=== PATIENT | female | born 1965 | race Caucasian/White ===

== ENCOUNTER 2025-02-04 07:23 | Inpatient (IN) | payer BC, OTHER ==
[~2025-02-04] VITALS: Ht 165.1 cm; Wt 66.0 kg
[~2025-02-04 07:23] MED LIST: ONDA4TAB6 PO; OXYC-145 PO
--- NOTE | 2025-02-04 07:51 | Physician Documentation ---
History of Present Illness ~ Chief Complaint: Anxiety Stated Complaint: ANXIETY Time Seen by MD: 07:32 Primary Medical Doctor: [place] Source: patient, EMS HPI 59-year-old female history of hypertension, anxiety, agoraphobia presenting for shakiness. She reports she was driving on her way to work after taking a vacation and feeling very anxious about returning. She suddenly had cramping of her bilateral hands and panic attack. She is currently feeling better. She is still feeling a little shaky. denies diarrhea, reports twice daily soft stools. No vomiting. She reports no medication changes she is on lisinopril 40 mg which was increased from 20 mg about 6 months ago. She reports eating a normal well balanced diet. No substance use. No alcohol use Medication Reconciliation Allergies: Coded Allergies: acetaminophen (Verified Allergy, Unknown, 02/04/25) hydrocodone (Verified Allergy, Unknown, 02/04/25) Scheduled PRN Ondansetron Hcl (Zofran), 1 TABLET PO Q6H PRN for nausea Oxycodone HCl/Acetaminophen (Percocet 5-325 mg Tablet), 1 TABLET PO Q4H PRN for pain Past Medical History Past Medical History: No Pertinent History Past Surgical History: no surgical history Review of Systems All Other Systems at this time: Reviewed and Negative Constitutional: Denies: fever Cardiovascular: Denies: chest pain Gastrointestinal: Denies: abdominal pain Physical Exam Vital Signs: RN Vital Signs have been reviewed: Yes, Temperature: 98.2, Source: Temporal, Heart Rate: 100, Respiratory Rate: 17, BP: 164/98, Pulse Oximetry: 98, Weight: 66.000 Physical Exam Well-appearing no distress Awake alert oriented Cranial nerves 2-12 intact Normal gait Normal speech Tremulous Progress Progress Note 8:[address] Holley who agrees with management plan and graciously accept for admission Results/Orders Reviewed/noted all lab results: Yes Results/Orders Orders - MARTHA RESENDEZ MD Hospitalist (02/04/25 08:21) Fill Out Med Reconciliation (02/04/25 08:21) Magnesium Sulf-Water 2g/50ml (Magnesium (02/04/25 08:25) Completed Orders - MARTHA RESENDEZ MD Cbc/Diff (02/04/25 07:42) CMP (02/04/25 07:42) MG (02/04/25 07:52) Electrocardiogram (02/04/25 ) Potassium Cl 20meq/100ml Bag (Potassium (02/04/25 08:25) Potassium Cl 20meq/15ml Oral (Potassium (02/04/25 08:25) CK (02/04/25 07:41) Medications Received in ER Medications (Trade) Dose Ordered Sig/Lakisha Route PRN Reason Start Time Stop Time Status Last Admin Dose Admin Magnesium Sulfate 50 ml @ 25 mls/hr ONCE ONCE IV 02/04/25 08:25 02/04/25 10:24 02/04/25 08:42 25 MLS/HR Potassium Chloride 100 ml @ 100 mls/hr Q1H ONCE IV 02/04/25 08:25 02/04/25 09:24 DC 02/04/25 08:42 100 MLS/HR (POTASSIUM Cl 20mEq/15mL oral solution) 20 meq ONCE ONCE PO 02/04/25 08:25 02/04/25 08:26 DC 02/04/25 08:42 20 MEQ Vital Signs 02/04/25 02/04/25 02/04/25 02/04/25 07:30 09:02 09:03 09:55 Temp 98.2 Pulse 100 90 77 Resp 17 13 17 13 B/P (MAP) 164/98 177/95 (122) Pulse Ox 98 97 97 O2 Flow Rate 0 Laboratory Tests Test 02/04/25 07:41 02/04/25 07:49 Sodium Level 139 Potassium Level 2.7 *L Chloride Level 97 L Carbon Dioxide Level 26.3 Anion Gap 16 Blood Urea Nitrogen 9 Creatinine 0.95 H Estimated GFR/1.73 m2 60 BUN/Creatinine Ratio 9.5 L Glucose Level 138 H Calcium Level 8.7 Magnesium Level 1.0 *L Total Bilirubin 1.9 H Aspartate Amino Transf (AST/SGOT) 37 Alanine Aminotransferase (ALT/SGPT) 29 Alkaline Phosphatase 142 H Total Creatine Kinase 93 Total Protein 8.7 H Albumin 3.4 Globulin 5.3 H Albumin/Globulin Ratio 0.6 L Chemistry Comments White Blood Count 5.7 Red Blood Count 4.63 Hemoglobin 15.6 Hematocrit 44.8 Mean Corpuscular Volume 96.7 Mean Corpuscular Hemoglobin 33.7 H Mean Corpuscular Hemoglobin Concent 34.8 Red Cell Distribution Width 14.3 Platelet Count 152 Mean Platelet Volume 7.0 L Neutrophils (%) (Auto) 82.7 H Lymphocytes (%) (Auto) 11.6 L Monocytes (%) (Auto) 4.2 Eosinophils (%) (Auto) 0.5 Basophils (%) (Auto) 1.0 Neutrophils # (Auto) 4.7 Lymphocytes # (Auto) 0.7 L Monocytes # (Auto) 0.2 Eosinophils # (Auto) 0.0 Basophils # (Auto) 0.1 CBC Comment EKG/XRAY/CT/US/VASC/MRI EKG : Additional Comment EKG independently interpreted by myself time 8:26 a.m. indication hypokalemia normal sinus rhythm rate 89 normal axis normal intervals no ST or T-wave abnormalities Medical Decision Making Differential Dx:Considerations: Include: Alcohol abuse, Anxiety, Bipolar disorder, Conversion disorder, Depression Departure Disposition: 09 ADMITTED INPATIENT Admitted to Inpatient Unit: to hospitalist Impression: Primary Impression: Hypokalemia Additional Impression: Hypomagnesemia Referrals: NO PRIMARY CARE PROVIDER (PCP) Signature Scribe Signature: na Attestation: MARTHA Cross MD February 04, 2025 07:51
[2025-02-04 08:01] LABS: BASOPHILS # (AUTO) 0.1 X10'3 (0-0.2); EOSINOPHILS % (AUTO) 0.5 % (0-6); HEMATOCRIT 44.8 % (35.0-45.0); HEMOGLOBIN 15.6 g/dl (12.0-16.0); LYMPHOCYTES # (AUTO) 0.7 X10'3 (1.1-4.8); LYMPHOCYTES % (AUTO) 11.6 % (21-51); MEAN CORPUSCULAR HEMOGLOBIN 33.7 PG (27.0-31.0); MEAN CORPUSCULAR HGB CONC 34.8 g/dL (33.0-36.5); MEAN CORPUSCULAR VOLUME 96.7 FL (78-98); MONOCYTES # (AUTO) 0.2 X10'3 (0-0.9); MONOCYTES % (AUTO) 4.2 % (2-12); NEUTROPHILS # (AUTO) 4.7 X10'3 (1.8-7.7); NEUTROPHILS % (AUTO) 82.7 % (42-75); PLATELET COUNT 152 X10'3 (140-440); RED BLOOD COUNT 4.63 X10'6 (4.20-5.60); RED CELL DISTRIBUTION WIDTH 14.3 % (11.5-14.5); WHITE BLOOD COUNT 5.7 X10'3 (4.5-11.0)
[2025-02-04 08:15] LABS: ALANINE AMINOTRANSFERASE 29 U/L (12-78); ALBUMIN 3.4 G/DL (3.4-5.0); ALBUMIN/GLOBULIN RATIO 0.6 (1.1-1.5); ALKALINE PHOSPHATASE 142 IU/L (46-116); ANION GAP 16 (8-16); ASPARTATE AMINO TRANSFERASE 37 U/L (10-37); BILIRUBIN,TOTAL 1.9 MG/DL (0.1-1.0); BLOOD UREA NITROGEN 9 MG/DL (7-18); BUN/CREATININE RATIO 9.5 (10.0-20.0); CALCIUM 8.7 MG/DL (8.5-10.1); CHLORIDE 97 MMOL/L (99-107); CREATININE 0.95 MG/DL (0.40-0.90); GLUCOSE 138 MG/DL (70-104); SODIUM 139 MMOL/L (135-145); TOTAL CARBON DIOXIDE 26.3 MMOL/L (24-32); TOTAL PROTEIN 8.7 G/DL (6.4-8.2); eCRCL 57 ML/MIN; eGFR 60 ML/MIN
[2025-02-04 08:18] LABS: POTASSIUM 2.7 MMOL/L (3.5-5.1)
--- NOTE | 2025-02-04 08:28 | ELECTROCARDIOGRAPH REPORT ---
[facility] Test Date: 2025-02-04 Test Time: 08:26:33 Pat Name: KARINA CORONA Department: [facility]-ER Patient ID: [facility]-[id number] Room: [facility]TH[facility] Gender: F Home Health Care Case Manager: : 1965 Requested By: MARTHA RESENDEZ Order Number: [id number] Reading MD: Dr. Bennett Verdugo Measurements Intervals [place] Rate: 89 P: 68 AL: 141 QRS: 39 QRSD: 90 T: 27 QT: 363 QTc: 442 Interpretive Statements Sinus rhythm Electronically Signed On 02-06-2025 11:02:[address] Bennett Verdugo Please click the below link to view image of tracing.
[2025-02-04] MEDS: potassium Cl 20mEq in NS 1,000 ML IV SCH (08:35)
[2025-02-04] MEDS ORDERED: magnesium sulf-water 2g/50mL 50 ML IV PRN (08:35)
[2025-02-04] MEDS ORDERED: potassium Cl 40MEQ/1/2NS 520ml 520 ML IV PRN (08:35)
[2025-02-04] MEDS ORDERED: ondansetron/PF 4mg/2ml inj IV PRN (08:35)
[2025-02-04] MEDS ORDERED: magnesium sulf-water 4G/100mL 100 ML IV PRN (08:35)
[2025-02-04] MEDS ORDERED: magnesium hydroxide 30ml (MOM) UD suspension PO PRN (08:35)
[2025-02-04] MEDS: potassium Cl 20mEq/100mL bag 100 ML IV ONE (08:42)
[2025-02-04] MEDS: magnesium sulf-water 2g/50mL 50 ML IV ONE (08:42)
[2025-02-04] MEDS: POTASSIUM CHLORIDE 20 MEQ/15 ML oral solution PO ONE (08:42)
[2025-02-04 09:07] LABS: CREATINE KINASE 93 U/L (26-192)
[2025-02-04 11:20] LABS: CHOL/HDL RATIO 2.1 (0.00-4.99); CHOLESTEROL 305 MG/DL (0-200); HDL CHOLESTEROL 144 MG/DL (35-60); LDL CHOLESTEROL 137 MG/DL (50-100); THYROID STIMULATING HORMONE 1.61 ulU/ml (0.34-4.50); TRIGLYCERIDES 65 MG/DL (20-135)
[2025-02-04] MEDS: potassium Cl 20 mEq SR tablet PO PRN ×2 (11:42→19:18)
[2025-02-04 11:45] LABS: ALANINE AMINOTRANSFERASE 27 U/L (12-78); ALBUMIN 3.3 G/DL (3.4-5.0); ALBUMIN/GLOBULIN RATIO 0.7 (1.1-1.5); ALKALINE PHOSPHATASE 135 IU/L (46-116); ANION GAP 10 (8-16); ASPARTATE AMINO TRANSFERASE 36 U/L (10-37); BILIRUBIN,TOTAL 1.5 MG/DL (0.1-1.0); BLOOD UREA NITROGEN 9 MG/DL (7-18); BUN/CREATININE RATIO 12.5 (10.0-20.0); CALCIUM 8.5 MG/DL (8.5-10.1); CHLORIDE 102 MMOL/L (99-107); CREATININE 0.72 MG/DL (0.40-0.90); GLUCOSE 93 MG/DL (70-104); POTASSIUM 3.3 MMOL/L (3.5-5.1); SODIUM 142 MMOL/L (135-145); TOTAL CARBON DIOXIDE 30.2 MMOL/L (24-32); TOTAL PROTEIN 8.3 G/DL (6.4-8.2); eCRCL 76 ML/MIN; eGFR 83 ML/MIN
--- NOTE | 2025-02-04 12:18 | HISTORY AND PHYSICAL-Residence ---
History & Physical Providers to CC Resident Creating Document: IRIS CHEN, LORIN ~ History of Present Illness Primary Medical Doctor: Dr. 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 Endorses tremulousness of both hands around 6:50 a.m. on today. Endorses pain and soreness in both hands & freezing of both hands for the past one day. Complained of night sweats, cramping of the calf muscles and heat intolerance for the past one day. She reports dry cough occasionally. He denied costovertebral angle pain, abdominal pain, abdominal distention, chest pain, shortness of breaths, fever, wheezing, headache, burning micturition, vomitings, sleep and appetite disturbances, bladder and bowel disturbances. She reports multiple UTI in the the past and had admission in 2014 for nephrolithiasis. Discussed code status with the patient and patient wants to be in full code Allergies: Coded Allergies: acetaminophen (Verified Allergy, Unknown, 02/04/25) hydrocodone (Verified Allergy, Unknown, 02/04/25) Home Medications Home Medications Active Percocet 5-325 mg Tablet (Oxycodone HCl/Acetaminophen) 1 Each Tablet 1 Tablet PO Q4H PRN Zofran (Ondansetron Hcl) 4 Mg Tablet 1 Tablet PO Q6H PRN Past Medical History Past Medical History Hypertension Valvular problem(not sure about the diagnosis) History of renal stones UTI Past Surgical History Surgical History Comment Tonsillectomy Past Social History Social History Comment Endorses smoking half a pack of cigarettes a day for the past 40-45 years Alcohol use Denied drug use. 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 Constitutional: Denies: fever Cardiovascular: Denies: chest pain Gastrointestinal: Denies: abdominal pain Exam Vitals: Vital Signs Date Time Temp Pulse Resp B/P (MAP) Pulse Ox O2 Delivery O2 Flow Rate FiO2 02/04/25 09:55 77 13 177/95 (122) 97 0 02/04/25 07:30 98.2 General: GENERAL: Alert, awake, oriented to time place person. Not in acute distress HEENT: Atraumatic, EOMI, PERRL, normal oropharynx, moist oral mucosa. NECK: Supple, trachea midline. CARDIAC: Regular rate and rhythm, no murmurs, rubs, or gallops. Equal distal pulses. No lower extremity edema. RESPIRATORY: Equal breath sounds, clear to auscultation bilaterally, no respiratory distress. GASTROINTESTINAL: Non distended, soft, nontender. Decreased bowel sounds. Back: no flank tenderness MUSCULOSKELETAL: Normal range of motion, calves soft and nontender, no swelling. NEUROLOGICAL: Speech is clear. Awake, alert, and oriented x 3. SKIN: Warm/dry, no pallor, no rash. PSYCH: Alert and appropriate, normal affect. Diagnostic Data Last Recorded Lab Results: 02/04/25 0749 02/04/25 1122 Advance Care Planning Advanced Care planning: Add on additional 30 min Additional Plan Hypokalemia Hypomagnesemia Hypochloremia About three likely secondary to Possible Hyperaldosteronism 2/[address] imaging in 2015 showed right adrenal mass-adenoma (3.[address] in 2015) Ordered CT abdomen pelvis and aldosterone & renin levels and results are pending. Patient is on potassium and magnesium replace per protocol We will continue to monitor CMP. DAVE Likely secondary to renal tubular stasis, In the morning serum creatinine is elevated and then it is normalized . Hyperbilirubinemia Elevated alkaline phosphatase Above likely secondary to possible alcohol liver disease Ordered CT abdomen pelvis we will follow up with the results On alcohol detox protocol thiamine, folic acid. We will continue to monitor liver function test. Hypertension Blood pressures are high in 170s Patient is on hydralazine p.r.n. and lisinopril 20 mg dose When continue to monitor blood pressure with a target of less than 130 Hyperlipidemia LDL is 137 Started on atorvastatin 20 mg in view of comorbidities hypertension, chronic smoking Code status: Full code Date of Service: February 04, 2025 Billing Provider: HERLINDA CASTANON MD Common Visit Codes: [id number] INP/OBS CARE (HIGH) Secondary Visit Codes: [id number] CARE PLAN 30 MINUTES IRIS CHEN RES February 04, 2025 12:18 HERLINDA CASTANON MD February 04, 2025 19:01
[2025-02-04 14:50] VITALS: BP_SYST 171; BP_SYST 181; BP_DIAS 109; BP_DIAS 95; PULSE 72; RESP 16; TEMP 98.7; O2SAT 98
[2025-02-04] MEDS: lisinopril 20mg tablet PO SCH (15:10)
[2025-02-04] MEDS: hyDRALAzine 10mg tablet PO SCH (16:17)
[2025-02-04] MEDS: nicotine 14mg patch - 24hr TD SCH (16:17)
[2025-02-04] MEDS ORDERED: haloperidol 5mg tablet PO PRN (16:45)
[2025-02-04] MEDS ORDERED: dextrose 50%-water 50ml dispensing syringe IV PRN (16:45)
[2025-02-04] MEDS ORDERED: haloperidol lactate 5mg/ml inj IM PRN (16:45)
[2025-02-04] MEDS ORDERED: LORazepam 2 mg/ml vial IV PRN (16:45)
[2025-02-04] MEDS ORDERED: LORazepam 1 MG tablet PO PRN (16:45)
[2025-02-04] MEDS ORDERED: atorvastatin 20mg tablet PO SCH (17:00)
[2025-02-04 18:00] VITALS: BP 159/79; PULSE 99; RESP 16; TEMP 97.3; O2SAT 95
--- NOTE | 2025-02-04 18:00 | RADIOLOGY REPORT ---
EXAM: CT CT ABDOMEN PELVIS HISTORY: right adrenal mass TECHNIQUE: Volumetric multidetector CT images of the abdomen and pelvis were obtained after the admin istration of intravenous contrast. All CT scans at this facility use dose modulation, iterative recon struction, and/or weight based dosing when appropriate to reduce radiation dose to as low as reasonab ly achievable. COMPARISON: None FINDINGS: [LOWER CHEST]: Opacities of the periphery of the left lung base measuring up to 1.7 cm. No pleural e ffusion. [LIVER]: Diffuse hepatic steatosis [GALLBLADDER AND BILIARY TREE]: No cholelithiasis. [SPLEEN]: Unremarkable. [PANCREAS]: Unremarkable. [ADRENAL GLANDS]: Right adrenal gland nodule measuring 3.1 cm with low to intermediate density. [KIDNEYS]: No hydronephrosis. Multiple bilateral 1 - 2 mm nonobstructive renal calyceal stones. [BLADDER]: Unremarkable for the degree distention. [REPRODUCTIVE ORGANS]: Unremarkable. [BOWEL/MESENTERY]: Stomach is normal. No CT evidence of bowel obstruction. Normal appendix. Sigmoid diverticulosis. [ASCITES]: Absent [LYMPHADENOPATHY]: No pathologically enlarged lymph nodes by CT size criteria [VASCULATURE]: No aneurysmal dilatation. [ABDOMINAL WALL]: Unremarkable. [MUSCULOSKELETAL]: No acute fracture or aggressive focal osseous lesion. Multifocal degenerative hess ge of the visualized spine. IMPRESSION: 1. Indeterminate right adrenal gland nodule measuring 3.1 cm with low to intermediate density. Consid er dedicated CT adrenal protocol. 2. No suspicious lymphadenopathy. 3. Indeterminate airspace opacities of the periphery of the left lower lobe.
[2025-02-04] MEDS: atorvastatin 20mg tablet PO SCH (19:06)
[2025-02-04] MEDS: folic acid 1mg/0.2ml inj IV SCH (19:10)
[2025-02-04] MEDS ORDERED: LISI40TA13 PO (19:38)
[2025-02-04 19:43] VITALS: RESP 16; O2SAT 98
[2025-02-04] MEDS: thiamine 100mg/ml 2ml inj. IV SCH (19:51)
[2025-02-04] MEDS: docusate sod 100mg capsule PO SCH (20:00)
[2025-02-04] MEDS: heparin, porcine 5000 units/ml vial SQ SCH (20:00)
[2025-02-04 22:00] VITALS: BP 157/95; PULSE 74; RESP 16; TEMP 99.1; O2SAT 98
[2025-02-05 06:00] VITALS: BP 172/102; PULSE 91; RESP 16; TEMP 98.5; O2SAT 99
[2025-02-05 06:19] LABS: BASOPHILS % (AUTO) 0.6 % (0-1); EOSINOPHILS # (AUTO) 0.1 X10'3 (0-0.9); EOSINOPHILS % (AUTO) 1.1 % (0-6); HEMATOCRIT 41.6 % (35.0-45.0); LYMPHOCYTES % (AUTO) 22.7 % (21-51); MEAN CORPUSCULAR HEMOGLOBIN 32.9 PG (27.0-31.0); MEAN CORPUSCULAR HGB CONC 33.8 g/dL (33.0-36.5); MEAN CORPUSCULAR VOLUME 97.5 FL (78-98); MEAN PLATELET VOLUME 7.6 FL (7.4-10.4); MONOCYTES # (AUTO) 0.3 X10'3 (0-0.9); MONOCYTES % (AUTO) 6.1 % (2-12); NEUTROPHILS # (AUTO) 3.2 X10'3 (1.8-7.7); NEUTROPHILS % (AUTO) 69.5 % (42-75); PLATELET COUNT 120 X10'3 (140-440); RED BLOOD COUNT 4.26 X10'6 (4.20-5.60); RED CELL DISTRIBUTION WIDTH 14.4 % (11.5-14.5); WHITE BLOOD COUNT 4.5 X10'3 (4.5-11.0)
[2025-02-05 06:21] LABS: ALANINE AMINOTRANSFERASE 20 U/L (12-78); ALBUMIN 2.7 G/DL (3.4-5.0); ALBUMIN/GLOBULIN RATIO 0.6 (1.1-1.5); ALKALINE PHOSPHATASE 110 IU/L (46-116); ANION GAP 8 (8-16); ASPARTATE AMINO TRANSFERASE 30 U/L (10-37); BILIRUBIN,TOTAL 1.2 MG/DL (0.1-1.0); BLOOD UREA NITROGEN 8 MG/DL (7-18); BUN/CREATININE RATIO 11.6 (10.0-20.0); CALCIUM 8.4 MG/DL (8.5-10.1); CHLORIDE 107 MMOL/L (99-107); CREATININE 0.69 MG/DL (0.40-0.90); GLUCOSE 80 MG/DL (70-104); MAGNESIUM 1.3 MG/DL (1.5-2.4); POTASSIUM 3.6 MMOL/L (3.5-5.1); SODIUM 143 MMOL/L (135-145); TOTAL CARBON DIOXIDE 28.1 MMOL/L (24-32); TOTAL PROTEIN 7.1 G/DL (6.4-8.2); eCRCL 79 ML/MIN; eGFR 87 ML/MIN
[2025-02-05 08:00] VITALS: RESP 16; O2SAT 99
[2025-02-05] MEDS: nicotine 14mg patch - 24hr TD SCH (08:46)
[2025-02-05] MEDS: magnesium Cl slow-release 64mg tablet PO PRN (10:13)
[2025-02-05 11:00] VITALS: BP 168/82; PULSE 92; RESP 16; TEMP 98; O2SAT 100
[2025-02-05] MEDS: POTASSIUM BICARB 20meq eff tab 20 MEQ TABLET.EFF PO PRN (11:46)
[2025-02-05 14:51] LABS: PHOSPHORUS 2.8 MG/DL (2.3-4.5)
--- NOTE | 2025-02-05 14:54 | PROGRESS NOTE- Residence ---
Progress Note - Resident Providers to CC Resident Creating Document: IRIS CHEN RES ~ Antibiotic Timeout Antibiotic Ordered?: No Subjective Seen and examined the patient at bedside. Patient reports that her stiffness of hands(carpopedal spasms) which has been there for the past one week is resolving now. She denied tingling, numbness sensation over the upper limbs. No perioral numbness. Yesterday she expresses her concerns about the insurance coverage for CT abdomen and pelvis and labs and she does not want to go for further workup but later she changed her mind and she wants to get evaluation for hypokalemia and hypomagnesemia. Objective Vital Signs Date Time Temp Pulse Resp B/P (MAP) Pulse Ox O2 Delivery O2 Flow Rate FiO2 02/05/25 11:00 98.0 92 16 168/82 (110) 100 Room Air 02/05/25 08:00 0.0 Result Diagram: 02/05/25 0539 02/05/25 0539 GENERAL: Alert, awake, oriented to time place person. Not in acute distress HEENT: Atraumatic, EOMI, PERRL, normal oropharynx, moist oral mucosa. NECK: Supple, trachea midline. CARDIAC: Regular rate and rhythm, no murmurs, rubs, or gallops. Equal distal pulses. No lower extremity edema. RESPIRATORY: Equal breath sounds, clear to auscultation bilaterally, no respiratory distress. GASTROINTESTINAL: Non distended, soft, nontender. Bowel sounds are heard. Back: no flank tenderness MUSCULOSKELETAL: Normal range of motion, calves soft and nontender, no swelling. NEUROLOGICAL: Speech is clear. Awake, alert, and oriented x 3. SKIN: Warm/dry, no pallor, no rash. 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 Endorses tremulousness of both hands around 6:50 a.m. on today. Endorses pain and soreness in both hands & freezing of both hands for the past one day. Complained of night sweats, cramping of the calf muscles and heat intolerance for the past one day. She reports dry cough occasionally. He denied costovertebral angle pain, abdominal pain, abdominal distention, chest pain, shortness of breaths, fever, wheezing, headache, burning micturition, vomitings, sleep and appetite disturbances, bladder and bowel disturbances. She reports multiple UTI in the the past and had admission in 2015 for nephrolithiasis. Admitted for hypokalemia, hypomagnesemia with adrenal adenoma with the possibility of primary hyperaldosteronism versus proximal renal tubular acidosis. Plan Plan Hypokalemia, resolved Hypomagnesemia, resolving Hypochloremia, resolved Hypocalcemia Above three likely secondary to Possible Hyperaldosteronism 2/[address] imaging in 2015 showed right adrenal mass-adenoma (3.[address] in 2015) Ordered CT abdomen pelvis and aldosterone & renin levels and results are pending. Patient is on potassium and magnesium replace per protocol We will continue to monitor CMP. 02/05/2025: - carpopedal spasm is improved - corrected calcium is 9.4 mg which is normal - potassium is improved with replacement doses - magnesium is still on the lower side - we are evaluating the hypokalemia, hypomagnesemia with a urinary electrolytes and osmolality. - ordered renin, aldosterone levels .pending results - we are considering the differential diagnosis of primary hyperaldosteronism with adrenal adenoma - Conn syndrome and proximal RTA. - replacing the electrolytes per protocol and continue to monitor CMP. DAVE Likely secondary to renal tubular stasis, In the morning serum creatinine is elevated and then it is normalized . 02/05/2025: -Serum creatinine is improved and we will continue to monitor CMP Hyperbilirubinemia Elevated alkaline phosphatase Above likely secondary to possible alcohol liver disease Ordered CT abdomen pelvis we will follow up with the results On alcohol detox protocol thiamine, folic acid. We will continue to monitor liver function test. 02/05/2025: -CT abdomen and pelvis on 02/04/2025 showed Indeterminate right adrenal gland nodule measuring 3.1 cm with low to intermediate density. No suspicious lymphadenopathy. Indeterminate airspace opacities of the periphery of the left lower lobe. -bilirubin is improving -ordered viral hepatitis-B and C panel and we will follow up with the results Moderate protein malnutrition Hypoalbuminemia Albumin of 2.7 Continue to monitor serum albumin levels. Hypertension Blood pressures are high in 170s Patient is on hydralazine p.r.n. and lisinopril 20 mg dose When continue to monitor blood pressure with a target of less than 130 02/05/2025: -blood pressures are in high levels, around 170s and we added amlodipine 10 mg to lisinopril and hydralazine. -We will continue to monitor blood pressure with a target of less than 130 Hyperlipidemia LDL is 137 Started on atorvastatin 20 mg in view of comorbidities hypertension, chronic smoking Code status: Full code Diet: Regular diet DVT prophylaxis: Heparin subQ PT: Ordered Prognosis: Guarded Iris Chen IM resident. Date of Service: February 05, 2025 Billing Provider: WOODROW SALVADOR MD Common Visit Codes: [id number] INP/OBS CARE(HIGH) IRIS CHEN, RES February 05, 2025 14:54 WOODROW SALVADOR MD February 05, 2025 20:43
[2025-02-05 15:33] LABS: BILIRUBIN,DIRECT 0.2 MG/DL (0-0.3)
[2025-02-05] MEDS: amLODIPine 5mg tablet PO SCH (16:26)
[2025-02-05 18:00] VITALS: BP 190/106; PULSE 98; RESP 16; TEMP 98.2; O2SAT 98
[2025-02-05 20:00] VITALS: BP 179/110; PULSE 109; RESP 16; O2SAT 98
[2025-02-05] MEDS: ketorolac trometh 15mg/ml vial 15 MG/ML ML IV ONE (20:31)
[2025-02-05] MEDS: hydrALAZINE 20mg/ml inj. IV ONE (20:31)
[2025-02-05 22:00] VITALS: BP 168/96; PULSE 107; RESP 16; TEMP 98.2; O2SAT 98
[2025-02-06 00:15] VITALS: BP 140/89
[2025-02-06 05:00] VITALS: BP 151/89; PULSE 91; RESP 16; TEMP 98.1; O2SAT 95
[2025-02-06 06:50] LABS: BASOPHILS % (AUTO) 0.8 % (0-1); EOSINOPHILS # (AUTO) 0.1 X10'3 (0-0.9); EOSINOPHILS % (AUTO) 2.1 % (0-6); HEMATOCRIT 42.3 % (35.0-45.0); HEMOGLOBIN 14.5 g/dl (12.0-16.0); MEAN CORPUSCULAR HEMOGLOBIN 33.4 PG (27.0-31.0); MEAN CORPUSCULAR HGB CONC 34.2 g/dL (33.0-36.5); MEAN CORPUSCULAR VOLUME 97.5 FL (78-98); MONOCYTES # (AUTO) 0.3 X10'3 (0-0.9); MONOCYTES % (AUTO) 5.8 % (2-12); NEUTROPHILS # (AUTO) 3.2 X10'3 (1.8-7.7); NEUTROPHILS % (AUTO) 70.3 % (42-75); PLATELET COUNT 119 X10'3 (140-440); RED BLOOD COUNT 4.34 X10'6 (4.20-5.60); RED CELL DISTRIBUTION WIDTH 14.7 % (11.5-14.5); WHITE BLOOD COUNT 4.6 X10'3 (4.5-11.0)
[2025-02-06 07:01] LABS: ALANINE AMINOTRANSFERASE 27 U/L (12-78); ALBUMIN 2.9 G/DL (3.4-5.0); ALBUMIN/GLOBULIN RATIO 0.6 (1.1-1.5); ALKALINE PHOSPHATASE 116 IU/L (46-116); ANION GAP 8 (8-16); ASPARTATE AMINO TRANSFERASE 31 U/L (10-37); BILIRUBIN,TOTAL 1.1 MG/DL (0.1-1.0); BLOOD UREA NITROGEN 12 MG/DL (7-18); BUN/CREATININE RATIO 18.2 (10.0-20.0); CALCIUM 9.4 MG/DL (8.5-10.1); CHLORIDE 106 MMOL/L (99-107); CREATININE 0.66 MG/DL (0.40-0.90); GLUCOSE 85 MG/DL (70-104); MAGNESIUM 1.4 MG/DL (1.5-2.4); POTASSIUM 3.8 MMOL/L (3.5-5.1); SODIUM 142 MMOL/L (135-145); TOTAL CARBON DIOXIDE 28.2 MMOL/L (24-32); TOTAL PROTEIN 7.6 G/DL (6.4-8.2); eCRCL 83 ML/MIN; eGFR > 90 ML/MIN
[2025-02-06 08:00] VITALS: RESP 16; O2SAT 95
[2025-02-06] MEDS ORDERED: MAGN400C PO (09:35)
[2025-02-06 09:58] VITALS: BP_SYST 158; PULSE 90
[2025-02-08] MEDS ORDERED: folic acid 1mg tablet PO SCH (08:00)
[2025-02-08] MEDS ORDERED: thiamine 100mg tablet PO SCH (08:00)
== END 2025-02-06 11:15 | disposition home or self-care (01) | DRG 643 ==
LOC: ER 07:23 → ED HOLD 08:37 → ORTHO 4S 14:46
PROVIDERS: ADMIT Internal Medicine; ATTEND Internal Medicine
PROC: BW211ZZ Computerized Tomography (CT Scan) of Abdomen and Pelvis using Low Osmolar Contrast (ICD-10-PCS; principal; 2025-02-04)
DX: D35.01 Benign neoplasm of right adrenal gland (principal); N17.0 Acute kidney failure with tubular necrosis; E44.0 Moderate protein-calorie malnutrition; E83.42 Hypomagnesemia; F41.9 Anxiety disorder, unspecified; E87.6 Hypokalemia; I10 Essential (primary) hypertension; F40.01 Agoraphobia with panic disorder; F17.210 Nicotine dependence, cigarettes, uncomplicated; E87.8 Other disorders of electrolyte and fluid balance, not elsewhere classified; E80.6 Other disorders of bilirubin metabolism; E78.5 Hyperlipidemia, unspecified; E26.9 Hyperaldosteronism, unspecified; N25.89 Other disorders resulting from impaired renal tubular function; E83.51 Hypocalcemia; E26.01 Conn's syndrome; K70.9 Alcoholic liver disease, unspecified; E88.09 Other disorders of plasma-protein metabolism, not elsewhere classified; Z88.8 Allergy status to other drugs, medicaments and biological substances; Z87.440 Personal history of urinary (tract) infections; Z87.442 Personal history of urinary calculi; Z68.24 Body mass index [BMI] 24.0-24.9, adult
CPT/HCPCS: 36415; 74176; 80053; 80061; 82088; 82248; 82330; 82550; 82948; 83735; 83930; 84100; 84244; 84443; 85025; 86803; 87081; 87340; 87522; 93005; 99285; G0378; J0360; J1885; J3411; J3480; J3490; J7030